=== PATIENT | female | born 1950 | race Caucasian/White ===

== ENCOUNTER 2017-07-30 08:06 | Day surgery (SDC) ==
[2016-04-12 14:26] VITALS: BMI 29.2
[2017-07-30] MEDS ORDERED: ALBUTEROL 0.083% NEB NEB STA (08:28)
[2017-07-30] MEDS ORDERED: LIDOCAINE 1% 20 ML MDV ID ONE (08:55)
[2017-07-30] MEDS ORDERED: VERSED ONE (10:00)
[2017-07-30] MEDS ORDERED: DIPRIVAN 20 ML VIAL IVP ONE (10:00)
[2017-07-30 11:22] VITALS: BP 119/67
[2017-07-30 15:19] VITALS: TEMP 97
--- NOTE | 2017-07-31 09:47 | OP ---
INDICATIONS FOR PROCEDURE: 66-year-old female presents for colonoscopy exam. 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 She was treated with surgery. She presents for followup colonoscopy examination. MEDICATIONS: SEE ANESTHESIA NOTES. PROCEDURE: COLONOSCOPY. REPORT: The risks, benefits, alternatives and limitations were discussed in detail with the patient. Informed consent was obtained. After adequate sedation was achieved, a digital rectal exam revealed good tone, no masses. The colonoscope was introduced into the rectum and advanced under direct visual guidance to the ileocolonic anastomosis. This appeared unremarkable. I then slowly withdrew the scope in a circumferential manner examining the mucosa quite carefully. I looked on the proximal and distal side of folds and flexures as best as possible. I was able to retroflex the scope in the right colon and left colon to increase visualization. There was moderate amount of diverticulosis scattered throughout the sigmoid area. No other abnormalities were noted including on retroflex view of the anal canal. The prep was good. The withdrawal time was 7 minutes and 37 seconds. The patient tolerated the procedure well with stable vital signs and pulse oximetry throughout. IMPRESSION: 1. DIVERTICULOSIS RECOMMENDATIONS: 1. High fiber diet 2. Office visit as needed 3. Consider colonoscopy examination again in 2 years, sooner if there are signs and symptoms to indicate otherwise CC: DR. LYDIA PERALTA
== END 2017-07-30 11:37 | disposition home or self-care (01) ==
LOC: SURG 08:06
PROVIDERS: ATTEND Internal Medicine Gastroenterology
DX: Z08 Encounter for follow-up examination after completed treatment for malignant neoplasm (principal); Z85.038 Personal history of other malignant neoplasm of large intestine; K57.30 Diverticulosis of large intestine without perforation or abscess without bleeding; E11.9 Type 2 diabetes mellitus without complications
CPT/HCPCS: 82962; 94640

== ENCOUNTER 2018-12-30 06:53 | Outpatient (CLI) ==
[2016-04-12 14:26] VITALS: BMI 29.2
--- NOTE | 2018-12-31 10:51 | ECHO2D ---
Date of Exam: 12/30/18 Ordering Physician: DR. MOR FREEMAN Room #: OP Reason for Echo: SOB, CHEST PAIN M-Mode Normal Adult Results LV Dimensions Normal Adult Results AoV Opening excursions >1.6 >1.6 LVEDD-base- 3.5-5.8 4.4 Ao root dimensions 2.0-3.7 3.3 LVESD-base- 3.1-4.6 L. Atrium dimensions 1.9-3.8 3.7 Post. Wall thickness 0.8-1.1 1.1 IV septum (thickness) 0.7-1.2 1.2 Post. Wall excursion 0.72-1.3 NORMAL Septal motion NORMAL Systolic motion R. Ventricular cavity 1.5-2.0 NORMAL LVEF 60% 62% Paradoxical septal wall motion NORMAL 2-D : 2-D M Mode Echocardiogram was performed using apical four chamber and left parasternal long and short axis views. Mitral, tricuspid and aortic valves appear to be normal. Contractility of the left ventricle seems to be normal, so is the cavity size. Left atrial cavity size and aortic root appear to be normal. There is no pericardial effusion. There is no thrombus noted in the left ventricular or left aortic cavity. No mitral valve prolapse noted. M-MODE: MV: NORMAL AV: NORMAL TV: NORMAL PV: CHAMBER SIZE: NORMAL WALL MOTION: NORMAL PERICARDIUM: NORMAL INTERPRETATION: 1. BORDERLINE LEFT VENTRICULAR HYPERTROPHY 2. NORMAL LEFT VENTRICLE CONTRACTILITY 3. NORMAL VALVES MTDD
== END 2018-12-30 06:54 | disposition home or self-care (01) ==
LOC: CAR 06:53
PROVIDERS: ATTEND Internal Medicine
DX: R06.02 Shortness of breath (principal); R07.9 Chest pain, unspecified

== ENCOUNTER 2019-01-01 06:38 | Outpatient (CLI) ==
[2016-04-12 14:26] VITALS: BMI 29.2
[2019-01-01] MEDS ORDERED: DOBUTAMINE 500 MG-D5W 250 ML 250 ML IV ONE (07:13)
[2019-01-01] MEDS ORDERED: ATROPINE SULFATE PFS ONE (07:14)
[2019-01-01] MEDS ORDERED: SODIUM CHLORIDE 1,000 ML IV SCH (08:30)
--- NOTE | 2019-01-01 09:37 | DOBSTECHO ---
Date of Test: 01/01/19 Ordering Physician: DR. MOR FREEMAN SMOKING HISTORY: QUIT 5 YRS AGO Current Medications: ALPRAZOLAM, PANTOPRAZOLE, FLUOXETINE, LISINOPRIL, LOVASTATIN, BENTYL, ASA, SYMBICORT, VENTOLIN Height: 61" Weight: 177 LBS Target Heart Rate: 128/151 S-T Segment Stage Time HR BPM BP MMHG Rhythm +/- Elevation Depression Symptoms Control Sitting 68 BPM 118/62 SR X NONE Dobutamine 250mg/D5W 5cmg/KG/mn 10cmg/KG/mn 3:00 74 BPM 130/86 SR X NONE 15cmg/KG/mn 2:00 107 BPM SR X NONE 20cmg/KG/mn 1:46 137 BPM 158/80 SR X NONE 25cmg/KG/mn 30cmg/KG/mn 35cmg/KG/mn 40cmg/KG/mn 4 MIN POST INFUSION z 114 BPM 148/70 SR X NONE 10 MIN POST INFUSION z 78 BPM 132/70 SR X NONE DURATION OF INFUSION 6:46 MAXIMUM HEART RATE REACHED 137 Interpretation: 1. NO EVIDENCE OF ISCHEMIA BY ST-T WAVE 2. NO CHEST PAIN OR DISCOMFORT 3. NORMAL LEFT VENTRICULAR CONTRACTILITY--RESTING AND WITH DOBUTAMINE INFUSION MTDD
--- NOTE | 2019-01-01 09:39 | ECHOSTRESS ---
Date of Exam: 01/01/19 Ordering Physician: DR. MOR FREEMAN Reason for Echo: SOB, CHEST PAIN, DOBUTAMINE STRESS TEST--NO ISCHEMIA M-Mode Normal Adult Results LV Dimensions Normal Adult Results AoV Opening excursions >1.6 LVEDD-base- 3.5-5.8 Ao root dimensions 2.0-3.7 LVESD-base- 3.1-4.6 L. Atrium dimensions 1.9-3.8 Post. Wall thickness 0.8-1.1 IV septum (thickness) 0.7-1.2 Post. Wall excursion 0.72-1.3 Septal motion Systolic motion R. Ventricular cavity 1.5-2.0 LVEF 60% Paradoxical septal wall motion 2-D: NORMAL LEFT VENTRICULAR CONTRACTILITY--RESTING AND WITH DOBUTAMINE INFUSION M-MODE: MV: AV: TV: PV: CHAMBER SIZE: WALL MOTION: NORMAL LEFT VENTRICULAR CONTRACTILITY--RESTING AND WITH DOBUTAMINE INFUSION PERICARDIUM: INTERPRETATION: 1. NORMAL LEFT VENTRICULAR CONTRACTILITY--RESTING AND WITH DOBUTAMINE INFUSION MTDD
== END 2019-01-01 06:39 | disposition home or self-care (01) ==
LOC: CAR 06:38
PROVIDERS: ATTEND Internal Medicine
DX: R06.02 Shortness of breath (principal); R07.9 Chest pain, unspecified

== ENCOUNTER 2022-05-23 07:13 | Inpatient (IN) ==
--- NOTE | 2022-05-23 07:26 | ED.PDOC ---
General ED Provider: Dr. ZOYA CUTLER Chief Complaint: Nausea/Vomiting Stated Complaint: Abdominal pain with nausea and vomiting for several days. Seen in ER here recently, CT showed diverticulitis, Rx augmentin, then had F/U with [facility] with Dr. Freeman, abx changed to cipro and flagyl, patient having ongoing N and V. Here Time Seen by Provider: 05/23/22 07:25 Mode of Arrival: Walk-In Information Source: Patient and Family Exam Limitations: No limitations Primary Care Provider: MOR FREEMAN Referred to ED by: PCP Nursing and Triage Documentation Reviewed and Agree: Yes Does patient meet sepsis criteria?: No System Inflammatory Response Syndrome: Not Applicable Sepsis Protocol: For patient's 13 years and over: Temp is 96.8 and below OR 101 and greater Pulse >90 BPM Resp >20/minute Acutely Altered Mental Status Are patient's symptoms suggestive of a new infection, such as: -Pneumonia -Skin, Soft Tissue -Endocarditis -UTI -Bone, Joint Infection -Implantable Device -Acute Abdominal Infection -Wound Infection -Meningitis -Blood Stream Catheter Infection -Unknown GI Complaint Exam Abdominal Pain Complaint/Exam Onset: Gradual Duration: several d Symptoms Are: Still present Timing: Constant Initial Severity: Mild Current Severity: Moderate Location of Pain: LLQ Character: Reports Aching and Cramping Aggravating: Reports Food Alleviating: Reports None Associated Signs and Symptoms: Denies Diaphoresis, Fever, Cough, Chest pain, Dizziness, Back pain, Constipation, Blood in stool, Dysuria, Urinary frequency, Decreased urine output, Decreased appetite, Vaginal bleeding, Vaginal discharge, Nausea, Vomiting, Diarrhea, Sore throat or Decreased activity Related History: Reports Similar episode AAA Risk Factors: Reports None Cardiac Risk Factors: Reports None Ectopic Risk Factors: Reports None Ovarian Torsion Risk Factors: Reports None Surgical Obstruction Risk Factors: Reports None Related Surgical History: Reports None Abdominal Findings: Present Other (TTP LLQ) Review of Systems Review Of Systems Constitutional: Reports Malaise and Weakness Eyes: Reports No symptoms Ears, Nose, Mouth, Throat: Reports No symptoms Respiratory: Reports No symptoms Cardiac: Reports No symptoms GI: Reports Abdominal pain, Nausea, Poor appetite, Poor fluid intake and Vomiting : Reports No symptoms Musculoskeletal: Reports No symptoms Skin: Reports No symptoms Neurological: Reports No symptoms Endocrine: Reports No symptoms Hematologic/Lymphatic: Reports No symptoms All Other Systems: Reviewed and Negative PFSH Social History History of recent travel: No Female Reproductive History Menstrual Hx Hysterectomy: Yes Hx Tubal Ligation: No Physical Exam Physical Exam Appearance: Reports Ill-appearing Ill-appearing: Moderate Pain Distress: Moderate Eyes: Reports CHANELL ENT: Reports Oropharynx normal Neck: Nonsupple Respiratory: Reports Airway patent and Breath sounds clear Cardiovascular: Reports RRR and Pulses normal GI/: Reports Bowel sounds normal and Tender (LLQ) Musculoskeletal: Reports Normal strength and ROM intact Skin: Reports Warm and Dry Neurological: Reports Sensation intact, Motor intact and Alert Psychiatric: Reports Affect appropriate and Mood appropriate Interpretation Radiology Interpretation Radiology Interpretation By: Radiologist Radiology Results: Positive Exam Interpreted: CT Scan Xray Comments: abd/pel with IV contrast per Dr. Freeman - diverticulitis, no abscess Physician Notification Case Discussed Physician Notified: Dr. Freeman Time of Notification: 11:00 Comments: Admit Critical Care Note Critical Care Note Total Critical Care Time (mins): 0 Course Course Hematology/Chemistry: 05/23/22 07:40 05/23/22 07:40 Orders, Labs, Meds: Lab Review 05/23/22 05/23/22 05/23/22 07:40 07:40 09:05 WBC 7.45 RBC 4.30 Hgb 12.7 Hct 38.9 MCV 90.5 MCH 29.5 MCHC 32.6 RDW Coeff of Michelle 13.6 Plt Count 236 Immature Gran % (Auto) 0.4 Neut % (Auto) 67.4 Lymph % (Auto) 23.2 [place] % (Auto) 6.8 Eos % (Auto) 1.9 Baso % (Auto) 0.3 Neut # (Auto) 5.0 Lymph # (Auto) 1.7 [place] # (Auto) 0.5 Eos # (Auto) 0.1 Baso # (Auto) 0.0 Immature Gran # (Auto) 0.0 Sodium 138.3 Potassium 3.58 Chloride 96.4 L Carbon Dioxide 30.8 H Anion Gap 14.68 BUN 15.7 Creatinine 0.90 Estimated GFR (MDRD) 62.00 BUN/Creatinine Ratio 17.44 Glucose 122.5 H Calcium 9.78 Total Bilirubin 0.42 AST 33.3 ALT 25.6 Alkaline Phosphatase 81.5 Total Protein 7.96 Albumin 4.34 Globulin 3.62 Albumin/Globulin Ratio 1.19 SARS CoV-2 RNA Rapid BRIAN Negative Orders Category Date Time Status ADMIT PATIENT INPATIENT .TO [facility] [place] (NON-MONITORED ADMISSION 05/23/22 09:07 Active BED) ACTIVITY .Up With Assistance CARE 05/23/22 09:07 Active INTAKE & OUTPUT Q8HR CARE 05/23/22 09:08 Active NPO REMINDER: IMAGING ONCE CARE 05/23/22 09:17 Active VITAL SIGNS Q8HR CARE 05/23/22 09:08 Active CBC W/ AUTO DIFF DAILY@0600 LAB 05/24/22 06:00 Ordered CBC W/ AUTO DIFF DAILY@0600 LAB 05/25/22 06:00 Ordered CBC W/ AUTO DIFF Stat LAB 05/23/22 07:40 Completed CMP [COMPREHENSIVE METABOLIC PANEL] Stat LAB 05/23/22 07:40 Completed COMPREHENSIVE METABOLIC PANEL DAILY@0600 LAB 05/24/22 06:00 Ordered COMPREHENSIVE METABOLIC PANEL DAILY@0600 LAB 05/25/22 06:00 Ordered COVID [SARS COV-2 RNA RAPID BRIAN] Stat LAB 05/23/22 09:05 Completed Ciprofloxacin/D5w [Cipro 400 mg/200 ml D5w] MEDS 05/23/22 09:30 Active 400 mg in 200 ml IV BID Metronidazole/Sodium Chloride [Flagyl 500 mg/100 ml] MEDS 05/23/22 09:30 Active 500 mg in 100 ml IV Q6HR Ondansetron HCl/Pf [Zofran 4 mg/2 ml] MEDS 05/23/22 07:31 Discontinued 4 mg IVP ONCE ONE Ondansetron HCl/Pf [Zofran 4 mg/2 ml] MEDS 05/23/22 09:07 Active 4 mg IVP Q4H PRN Promethazine HCl [Phenergan 25 mg/ml Vial] MEDS 05/23/22 08:14 Discontinued 25 mg .ROUTE .STK-MED ONE Promethazine HCl [Phenergan 25 mg/ml Vial] 25 mg MEDS 05/23/22 08:08 Discontinued 0.9 % Sodium Chloride [Sodium Chloride] 50 ml IV ONCE Sodium Chloride 0.9% [Sodium Chloride] 1,000 ml MEDS 05/23/22 07:31 Active IV 125 mls/hr Sodium Chloride 0.9% [Sodium Chloride] 500 ml MEDS 05/23/22 09:07 Active IV 100 mls/hr RESUSCITATION STATUS Routine OTHERS 05/23/22 09:[address] ABDOMEN/PELVIS W CONTRAST Stat RADS 05/23/22 09:17 Completed Medications Generic Name Dose Route Start Last Admin Trade Name Freq PRN Reason Stop Dose Admin Sodium Chloride 1,000 mls @ 125 mls/hr 05/23/22 07:31 05/23/22 08:08 Sodium Chloride IV 05/23/22 15:30 125 mls/hr .Q8H STA Administration Ciprofloxacin/Dextrose 400 mg in 200 mls @ 200 mls/hr 05/23/22 09:30 05/23/22 10:18 Cipro 400 Mg/200 Ml D5w IV 05/26/22 09:29 200 mls/hr BID THIEN Administration Metronidazole 500 mg in 100 mls @ 100 mls/hr 05/23/22 09:30 Flagyl 500 Mg/100 Ml IV 05/26/22 09:29 Q6HR THIEN Sodium Chloride 500 mls @ 100 mls/hr 05/23/22 09:07 Sodium Chloride IV 05/23/22 14:06 .Q5H STA Ondansetron HCl 4 mg 05/23/22 09:07 Ondansetron Hcl/Pf 4 Mg/2 Ml Sdv IVP Q4H PRN Nausea / Vomiting Discontinued Medications Generic Name Dose Route Start Last Admin Trade Name Freq PRN Reason Stop Dose Admin Promethazine HCl 25 mg/ Sodium 51 mls @ 75 mls/hr 05/23/22 08:08 05/23/22 08:16 Chloride IV 05/23/22 08:48 75 mls/hr ONCE ONE Administration Ondansetron HCl 4 mg 05/23/22 07:31 05/23/22 10:57 Ondansetron Hcl/Pf 4 Mg/2 Ml Sdv IVP 05/23/22 07:32 Not Given ONCE ONE Vital Signs: Temp Pulse Resp BP Pulse Ox 05/23/22 07:14 97.9 F 84 18 146/80 H 90 L Discharge Plan Discharge Patient Disposition: ADMITTED INPATIENT Prescriptions: No Action alprazolam 0.25 MG tablet 0.25 mg PO 1-2XD fluoxetine [Prozac] 20 MG capsule 20 mg PO DAILY lovastatin 40 MG tablet 1 tab PO DAILY aspirin 81 MG tablet,delayed release (DR/EC) 1 tab PO DAILY Calcium 600 + D(3) 1 EACH tablet 1 tab PO DAILY dicyclomine 10 mg capsule 10 mg PO PRN PRN (Reason: ibs) Label Comments: TAKE 1 CAPSULE BY MOUTH EVERY 6 HOURS NEEDED lisinopril-hydrochlorothiazide 20-12.5 mg tablet 1 tab PO DAILY metronidazole 500 mg tablet 500 mg PO TID Label Comments: TAKE 1 TABLET BY MOUTH THREE TIMES DAILY FOR 7 DAYS Rx Instructions: take for 7 days. Started 05/21/22 ciprofloxacin HCl 500 mg tablet 500 mg PO BID Label Comments: TAKE 1 TABLET BY MOUTH TWICE DAILY FOR 7 DAYS Rx Instructions: Take for 7 days. Started 05/21/22 tramadol 50 mg tablet 50 mg PO TID PRN (Reason: Pain) Label Comments: TAKE 1 TABLET BY MOUTH THREE TIMES DAILY NEEDED montelukast 10 mg tablet 10 mg PO DAILY Label Comments: TAKE 1 TABLET BY MOUTH EVERY DAY pantoprazole [Protonix] 40 MG tablet,delayed release (DR/EC) 40 mg PO DAILY Did you review [place] PERSONAL CONSULTANT?: Not Applicable ED Provider: ZOYA CUTLER Condition: Stable Physician Progress Note: [Admit for IV abx and IVF.]
[2022-05-23] MEDS ORDERED: SODIUM CHLORIDE 1,000 ML IV STA (07:31)
[2022-05-23] MEDS ORDERED: ZOFRAN 4 MG/2 ML IVP ONE (07:31)
[2022-05-23 07:50] LABS: BASOPHILS % (AUTO) 0.3 % (0.0-3.0); EOSINOPHILS # (AUTO) 0.1 K/ul (0.0-0.7); EOSINOPHILS % (AUTO) 1.9 % (0.0-7.0); HEMATOCRIT 38.9 % (37.0-47.0); HEMOGLOBIN 12.7 g/dl (12.0-16.0); IMMATURE GRANULOCYTE % (AUTO) 0.4 % (0.0-5.0); LYMPHOCYTES # (AUTO) 1.7 K/uL (0.60-3.4); LYMPHOCYTES % (AUTO) 23.2 (10.0-50.0); MEAN CORPUSCULAR HEMOGLOBIN 29.5 pg (27.0-31.0); MEAN CORPUSCULAR HGB CONC 32.6 (31.8-35.4); MEAN CORPUSCULAR VOLUME 90.5 fl (81.0-99.0); MONOCYTES # (AUTO) 0.5 K/uL (0.4-2.0); MONOCYTES % (AUTO) 6.8 (0-10); NEUTROPHILS % (AUTO) 67.4 % (42.2-75.2); PLATELET COUNT 236 10^3/uL (140-440); RDW COEFFICIENT OF VARIATION 13.6 % (11.6-14.8); WHITE BLOOD COUNT 7.45 K/ul (4.6-10.2)
[2022-05-23 08:01] LABS: ALANINE AMINOTRANSFERASE 25.6 U/L (0-35); ALBUMIN 4.34 g/dL (3.5-5.0); ALKALINE PHOSPHATASE 81.5 U/L (53-141); ASPARTATE AMINO TRANSFERASE 33.3 U/L (14-36); BILIRUBIN,TOTAL 0.42 mg/dL (0.2-1.3); BLOOD UREA NITROGEN 15.7 mg/dL (7-17); CALCIUM 9.78 mg/dL (8.4-10.2); CARBON DIOXIDE 30.8 mmol/L (22-30.0); CHLORIDE 96.4 mmol/L (98-107); CREATININE 0.9 mg/dL (0.60-1.30); GLUCOSE 122.5 mg/dL (74-106); POTASSIUM 3.58 mmol/L (3.5-5.1); SODIUM 138.3 mmol/L (134.5-145); TOTAL PROTEIN 7.96 g/dL (6.3-8.2)
[2022-05-23] MEDS ORDERED: PHENERGAN 25 MG/ML VIAL 25 MG in SODIUM CHLORIDE 50 ML IV ONE (08:08)
[2022-05-23] MEDS ORDERED: PHENERGAN 25 MG/ML VIAL ONE ×2 (08:14→21:23)
[2022-05-23] MEDS ORDERED: ZOFRAN 4 MG/2 ML IVP PRN (09:07)
[2022-05-23] MEDS ORDERED: SODIUM CHLORIDE 500 ML IV STA (09:07)
[2022-05-23] MEDS: CIPRO 400 MG/200 ML D5W 400 MG/200 ML BAG IV SCH ×2 (10:18→20:11)
--- NOTE | 2022-05-23 10:48 | CT ---
EXAM: CT Abdomen with contrast. CT Pelvis with contrast. HISTORY: Diverticulitis. COMPARISON: 05/18/2022, 04/12/2016. TECHNIQUE: Multiple axial images of the abdomen and pelvis were obtained following intravenous admin istration of 100 mL Omnipaque 350, low osmolar. Images were reformatted in the sagittal and coronal plane. FINDINGS: A 0.8 cm left lower lobe nodule on axial image 4 which may contain internal fat although t his is uncertain. Degenerative changes present in the spine, greatest at L5-S1. Gallbladder absent. There may be mild fatty infiltration of the liver. Pancreas, spleen, adrenal gl ands, and kidneys demonstrate no acute abnormality. Fatty ventral hernia on axial image 41 without edema. Staple line along the right colon. Wall thick ening of the sigmoid colon centered around diverticulum with adjacent inflammation, axial image 56. No bowel obstruction, perforation or abscess. Uterus absent. Bladder normal. No free fluid, free air or lymphadenopathy. Atherosclerotic calcifi cations present without aneurysm. IMPRESSION: 1. Stable sigmoid diverticulitis. No perforation, abscess or bowel obstruction. 2. Left lower lobe 0.8 cm nodule which may contain internal fat, possibly representing a hamartoma. Recommend non-emergent chest CT with thin sections for further evaluation. All CT scans are performed using dose optimization techniques as appropriate to the performed exam an d include at least one of the following: Automated exposure control, adjustment of the mA and/or kV according t o size, and the use of iterative reconstruction technique.
[2022-05-23 12:31] VITALS: BMI 35.4
[2022-05-23] MEDS: FLAGYL 500 MG/100 ML 500 MG/100 ML BAG IV SCH ×4 (12:43→23:27)
[2022-05-23] MEDS ORDERED: XANAX PO PRN (13:04)
[2022-05-23] MEDS ORDERED: BENTYL PO PRN (13:04)
[2022-05-23] MEDS ORDERED: ULTRAM PO PRN (13:04)
[2022-05-23] MEDS: DEXTROSE 5%-1/2NS IV SOLUTION 1,000 ML IV SCH (13:53)
[2022-05-23 15:50] LABS: BILIRUBIN,URINE Negative (NEGATIVE); CLARITY,URINE Clear (CLEAR); COLOR,URINE Yellow (YELLOW); GLUCOSE, URINE (UA) Negative (NEGATIVE); KETONES,URINE Negative (NEGATIVE); LEUKOCYTE ESTERASE ,URINE Negative (NEGATIVE); NITRITE,URINE Negative (NEGATIVE); PROTEIN,URINE Negative (NEGATIVE); URINE, BLOOD Negative (NEGATIVE); UROBILINOGEN,URINE 0.2 (0.2)
[2022-05-23] MEDS: MEVACOR PO SCH (17:31)
[2022-05-23] MEDS ORDERED: PHENERGAN 25 MG/ML VIAL 25 MG in SODIUM CHLORIDE 50 ML IV STA (21:09)
[2022-05-24 05:05] LABS: HEMATOCRIT 33.3 % (37.0-47.0); MEAN CORPUSCULAR VOLUME 90.7 fl (81.0-99.0); PLATELET COUNT 204 10^3/uL (140-440); RDW COEFFICIENT OF VARIATION 13.5 % (11.6-14.8); RED BLOOD COUNT 3.67 10^6/ul (4.20-5.40); WHITE BLOOD COUNT 6.41 K/ul (4.6-10.2)
[2022-05-24] MEDS: FLAGYL 500 MG/100 ML 500 MG/100 ML BAG IV SCH ×3 (05:14→22:24)
[2022-05-24] MEDS: DEXTROSE 5%-1/2NS IV SOLUTION 1,000 ML IV SCH ×2 (05:18→09:13)
[2022-05-24 05:20] LABS: ALANINE AMINOTRANSFERASE 25.4 U/L (0-35); ALBUMIN 3.63 g/dL (3.5-5.0); ALKALINE PHOSPHATASE 60.2 U/L (53-141); ASPARTATE AMINO TRANSFERASE 37.4 U/L (14-36); BILIRUBIN,TOTAL 0.39 mg/dL (0.2-1.3); BLOOD UREA NITROGEN 9.4 mg/dL (7-17); CALCIUM 8.86 mg/dL (8.4-10.2); CARBON DIOXIDE 33.1 mmol/L (22-30.0); CHLORIDE 98.1 mmol/L (98-107); CREATININE 0.85 mg/dL (0.60-1.30); GLUCOSE 120.9 mg/dL (74-106); POTASSIUM 3.54 mmol/L (3.5-5.1); SODIUM 135.5 mmol/L (134.5-145); TOTAL PROTEIN 6.68 g/dL (6.3-8.2)
[2022-05-24 05:34] LABS: ANISOCYTOSIS NOT PRESENT (NOT PRESENT)
[2022-05-24] MEDS: PROTONIX PO SCH (05:40)
[2022-05-24] MEDS ORDERED: PHENERGAN 25 MG/ML VIAL 12.5 MG in SODIUM CHLORIDE 50 ML IV PRN (08:37)
[2022-05-24] MEDS ORDERED: NON-FORMULARY MEDICATION (Calcium Carbonate-Vitamin D3 [Calcium 600 + D(3)] 1 EACH tablet) PO SCH (09:00)
[2022-05-24] MEDS: ZOFRAN 4 MG/2 ML IVP PRN ×3 (09:11→22:31)
--- NOTE | 2022-05-24 09:34 | PCM.PROG ---
Attending Provider: ATTENDING PROVIDER: Dr. MOR QUARLES This patient is seen with Lilliana Penaloza, Nurse Practitioner. DATE OF SERVICE: 05/24/22 SUBJECTIVE: This 71 year old /WHITE F was hospitalized 05/23/22. Still left lower abdominal pain. No diarrhea. No fever. Nausea off and on. CT of abdomen noted lower lobe nodule, does see Dr. Yin in [place]. Will order CT of the chest. REVIEW OF SYSTEMS: CONSTITUTIONAL: No night sweats. No fatigue, malaise, lethargy. No fever or chills. Weakness. HEENT: Eyes: No visual changes. No eye pain. No eye discharge. ENT: No runny nose. No epistaxis. No sinus pain. No odynophagia. No congestion. RESPIRATORY: No cough, no congestion. No hemoptysis. No shortness of breath. CARDIOVASCULAR: No angina symptoms. No CHF symptoms. No atypical chest pain for CAD. No palpitations. No orthopnea.. GASTROINTESTINAL: Abdominal pain. Nausea. No diarrhea or constipation. No hematemesis. No hematochezia. GENITOURINARY: No urgency. No frequency. No dysuria. No hematuria. No obstructive symptoms. No discharge. No pain. No significant abnormal bleeding. MUSCULOSKELETAL: No musculoskeletal pain; no joint swelling. NEUROLOGICAL: Awake, alert, oriented to time, place and person. No headache. No neck pain. No syncope. No seizures. No dizziness. PSYCHIATRIC: Not anxious. No depression. No suicidal thoughts. No homicidal thoughts. SKIN: No rash. No lesions. No wounds. ENDOCRINE: No unexplained weight loss. No weight gain. HEMATOLOGIC/LYMPHATIC: No anemia. No purpura. No petechiae. No prolonged or excessive bleeding. No palpable lymph nodes. PHYSICAL EXAMINATION: GENERAL: The patient is awake, alert and oriented, lying in bed in no distress. VITAL SIGNS: Temperature 97.2 F, Pulse 63, Respiratory Rate 16, BP 135/79, Pulse Ox 95% HEENT: Head normocephalic, atraumatic. Eyes: Extraocular muscles are intact. Pupils are equal, round and reactive to light and accommodation. Ears: No lesions. Nose appeared normal. Throat: No exudate or erythema. NECK: Supple. No JVD, no carotid bruit. No lymphadenopathy or thyromegaly. LUNGS: Diminished breath sounds. Clear to auscultation. Percussion note normal. Chest symmetrical. HEART: S1, S2, no S3. No murmurs. No cyanosis or clubbing. No ascites. Pulses: Dorsalis pedis and posterior tibial pulses +1 to +2 both sides. ABDOMEN: Soft. Left upper and lower quadrant tenderness. Bowel sounds active. No CVA tenderness. No mass felt. EXTREMITIES: No edema. Full range of motion of all extremities, equal. NEUROLOGIC: No focal deficit. Cranial nerves II through XII are grossly intact. No headache. No double vision. SKIN: Not dry. Intact. Turgor-normal. LYMPHATIC: No palpable lymph nodes/no lymphedema. MUSCULOSKELETAL: Normal joints with no swelling. Muscle tone is normal. LAB REVIEW: 05/24/22 04:59 05/24/22 04:59 05/24/22 04:59: Sodium 135.5, Potassium 3.54, Chloride 98.1, Carbon Dioxide 33.1 H, Anion Gap 7.84, BUN 9.4, Creatinine 0.85, Estimated GFR (MDRD) 66.00, BUN/Creatinine Ratio 11.05, Glucose 120.9 H, Calcium 8.86, Total Bilirubin 0.39, AST 37.4 H, ALT 25.4, Alkaline Phosphatase 60.2, Total Protein 6.68, Albumin 3.63, Globulin 3.05, Albumin/Globulin Ratio 1.19 05/24/22 04:59: WBC 6.41, RBC 3.67 L, Hgb 11.0 L, Hct 33.3 L, MCV 90.7, MCH 30.0, MCHC 33.0, RDW Coeff of Michelle 13.5, Plt Count 204, Neutrophils % (Manual) 50.0, Lymphocytes % (Manual) 40.0, Monocytes % (Manual) 6.0, Eosinophils % (Manual) 2.0, Reactive Lymphocytes 2.0, Anisocytosis Not present 05/23/22 15:30: Urine Color Yellow, Urine Clarity Clear, Urine pH 7.0, Ur Specific Blanchard 1.020, Urine Protein Negative, Urine Glucose (UA) Negative, Urine Ketones Negative, Urine Blood Negative, Urine Nitrite Negative, Urine Bilirubin Negative, Urine Urobilinogen 0.2, Ur Leukocyte Esterase Negative 05/23/22 09:05: SARS CoV-2 RNA Rapid BRIAN Negative 05/23/22 07:40: Sodium 138.3, Potassium 3.58, Chloride 96.4 L, Carbon Dioxide 30.8 H, Anion Gap 14.68, BUN 15.7, Creatinine 0.90, Estimated GFR (MDRD) 62.00, BUN/Creatinine Ratio 17.44, Glucose 122.5 H, Calcium 9.78, Total Bilirubin 0.42, AST 33.3, ALT 25.6, Alkaline Phosphatase 81.5, Total Protein 7.96, Albumin 4.34, Globulin 3.62, Albumin/Globulin Ratio 1.19 ASSESSMENT: Please see below. 1. Acute diverticulitis 2. COPD 3. Dehydration PLAN: 1. CT chest with and without 3. Stop IV fluids in AM 3. Decreased fluids to 50cc 4. Zofran 8mg IV Q 6 hours 5. Decrease Flagyl 500mg Q 8 hours 6. Phenergan 12.5mg IV PRN Plan and coordination of the patient's care discussed in the presence of Manager [employer] and nurse. SCRIBED BY: Misha STACK scribed while in presence of service performed by Dr. Quarles/Lilliana Penaloza APRN on 05/24/22 ([id number])
--- NOTE | 2022-05-24 10:54 | PN ---
DATE OF SERVICE: 05/23/22 SUBJECTIVE: The patient was seen and examined in the emergency room. The patient came in because of having nausea very likely from Flagyl which was started in the office. She was seen in the emergency room two days ago where she had acute diverticulitis with possibility of neoplasm underlying. This patient was given Augmentin and was sent home. The patient's overall says that she has much less pain than what she had on the left upper quadrant. She is feeling some better but nausea has continued likely from Flagyl. The patient hasn't eaten anything, almost vomited twice in the emergency room. Daughter is present in the room. REVIEW OF SYSTEMS: CONSTITUTIONAL: No night sweats. No fatigue, malaise, lethargy. No fever or chills. HEENT: Eyes: No visual changes. No eye pain. No eye discharge. ENT: No runny nose. No epistaxis. No sinus pain. No sore throat. No odynophagia. No congestion. RESPIRATORY: No cough, no congestion. No hemoptysis. No shortness of breath. CARDIOVASCULAR: No angina symptoms. No CHF symptoms. No atypical chest pain for CAD. No palpitations. No PND. No orthopnea. GASTROINTESTINAL: Practically not much abdominal pain. Nausea with vomiting. No diarrhea or constipation. No hematemesis. No hematochezia. GENITOURINARY: No urgency. No frequency. No dysuria. No hematuria. No obstructive symptoms. No discharge. No pain. No significant abnormal bleeding. MUSCULOSKELETAL: No musculoskeletal pain; no joint swelling. NEUROLOGICAL: No headache. No neck pain. No syncope. No seizures. No dizziness. PSYCHIATRIC: Not anxious. No depression. No suicidal thoughts. No homicidal thoughts. SKIN: No rash. No lesions. No wounds. ENDOCRINE: No unexplained weight loss. No weight gain. HEMATOLOGIC/LYMPHATIC: No anemia. No purpura. No petechiae. No prolonged or excessive bleeding. No palpable lymph nodes. PHYSICAL EXAMINATION: HEENT: Head normocephalic, atraumatic. Eyes: Extraocular muscles are intact. Pupils are equal, round and reactive to light and accommodation. Ears: No lesions. Nose appeared normal. Throat: No exudate or erythema. NECK: Supple. No JVD, no carotid bruit. No lymphadenopathy or thyromegaly. LUNGS: Clear to auscultation. Percussion note normal. Chest symmetrical. HEART: S1, S2, no S3. No murmurs. No cyanosis or clubbing. No ascites. Pulses: Dorsalis pedis and posterior tibial pulses +1 to +2 bilaterally. ABDOMEN: Soft. Mild tenderness in the left upper quadrant, no rebound tenderness. Bowel sounds active. No CVA tenderness. No mass felt. EXTREMITIES: No edema. Full range of motion of all extremities, equal. NEUROLOGIC: No focal deficit. Cranial nerves II through XII are grossly intact. No headache. No double vision. SKIN: Not dry. Intact. Turgor - normal. LYMPHATIC: No palpable lymph nodes/no lymphedema. MUSCULOSKELETAL: Normal joints with no swelling. Muscle tone is normal. LABS: CT scan of the abdomen showed diverticulitis, stable. No perforation. Case discussed with ER attending. PLAN: 1. Hospitalize the patient with acute diverticulitis 2. Give IV Flagyl and Cipro 3. IV fluids TIME SPENT: More than 30 minutes. Plan and coordination of the patient's care discussed in the presence of nurse. FABIAN
--- NOTE | 2022-05-24 12:09 | CT ---
EXAM: CT Chest with and without contrast. HISTORY: Pulmonary nodule follow-up. COMPARISON: Abdominal CT 05/23/2022, 05/18/2022. TECHNIQUE: Multiple axial images of the chest were obtained prior to and following intravenous admin istration of 100 mL Omnipaque 350, low osmolar. Images were reformatted in the sagittal and coronal planes. FINDINGS: Stable nonenlarged mediastinal and hilar lymph nodes. Heart size normal. Coronary artery aortic calcifications present. There is no pericardial effusion. Calcified granulomatous changes. Moderate emphysema. There is a 0.5 cm left upper lobe nodule on ax ial image 16 and. Tiny perifissural right lung nodule axial image 26 measuring 0.3 cm. A 0.3 cm veronica und-glass nodule right lower lobe on axial image 32. The recently described 0.9 cm left lower lobe n odule again noted on axial image 40. On thin section images this contains the visible macroscopic fa t with internal density measuring -90 Hounsfield units. Band-like areas of consolidation in the righ t middle lobe and lingula. No pleural effusion or pneumothorax. No acute abnormality in the upper abdomen. Degenerative changes present in the spine. IMPRESSION: 1. Left lower lobe nodule is consistent with a hamartoma. 2. Additional micronodules measuring up to 0.5 cm in the left upper lobe. 3. Moderate emphysema. 4. Calcified granulomatous changes. 5. Atherosclerosis. 6. Follow-up chest CT in 12 months recommended for reassessment. All CT scans are performed using dose optimization techniques as appropriate to the performed exam an d include at least one of the following: Automated exposure control, adjustment of the mA and/or kV according t o size, and the use of iterative reconstruction technique.
[2022-05-24] MEDS: CIPRO 400 MG/200 ML D5W 400 MG/200 ML BAG IV SCH ×3 (12:10→20:29)
[2022-05-24] MEDS: SINGULAIR PO SCH (12:11)
[2022-05-24] MEDS: CALCIUM 500 + VIT D 5 MCG (200 IU) TABLET PO SCH (12:12)
[2022-05-24] MEDS: ZESTORETIC 20-12.5 MG TAB PO SCH (12:12)
[2022-05-24] MEDS: PROZAC PO SCH (12:13)
[2022-05-24] MEDS: ASPIRIN EC PO SCH (12:13)
[2022-05-24] MEDS: MEVACOR PO SCH (17:06)
[2022-05-25] MEDS: DEXTROSE 5%-1/2NS IV SOLUTION 1,000 ML IV SCH (03:38)
[2022-05-25] MEDS: ZOFRAN 4 MG/2 ML IVP PRN ×2 (05:05→13:37)
[2022-05-25] MEDS: FLAGYL 500 MG/100 ML 500 MG/100 ML BAG IV SCH ×3 (05:31→20:49)
[2022-05-25] MEDS: PROTONIX PO SCH (05:31)
[2022-05-25 05:45] LABS: BASOPHILS % (AUTO) 0.3 % (0.0-3.0); EOSINOPHILS # (AUTO) 0.3 K/ul (0.0-0.7); EOSINOPHILS % (AUTO) 4.1 % (0.0-7.0); HEMATOCRIT 35.7 % (37.0-47.0); HEMOGLOBIN 11.5 g/dl (12.0-16.0); IMMATURE GRANULOCYTE % (AUTO) 0.3 % (0.0-5.0); LYMPHOCYTES # (AUTO) 2.1 K/uL (0.60-3.4); LYMPHOCYTES % (AUTO) 34.6 (10.0-50.0); MEAN CORPUSCULAR HGB CONC 32.2 (31.8-35.4); MEAN CORPUSCULAR VOLUME 90.2 fl (81.0-99.0); MONOCYTES # (AUTO) 0.5 K/uL (0.4-2.0); MONOCYTES % (AUTO) 7.3 (0-10); NEUTROPHILS # (AUTO) 3.3 K/ul (2.0-6.9); NEUTROPHILS % (AUTO) 53.4 % (42.2-75.2); PLATELET COUNT 236 10^3/uL (140-440); RDW COEFFICIENT OF VARIATION 13.7 % (11.6-14.8); RED BLOOD COUNT 3.96 10^6/ul (4.20-5.40); WHITE BLOOD COUNT 6.16 K/ul (4.6-10.2)
[2022-05-25 06:01] LABS: ALANINE AMINOTRANSFERASE 26.3 U/L (0-35); ALBUMIN 3.59 g/dL (3.5-5.0); ALKALINE PHOSPHATASE 65.7 U/L (53-141); ASPARTATE AMINO TRANSFERASE 38.3 U/L (14-36); BILIRUBIN,TOTAL 0.31 mg/dL (0.2-1.3); BLOOD UREA NITROGEN 8.2 mg/dL (7-17); CALCIUM 9.15 mg/dL (8.4-10.2); CHLORIDE 99.9 mmol/L (98-107); CREATININE 0.98 mg/dL (0.60-1.30); GLUCOSE 105.4 mg/dL (74-106); POTASSIUM 3.51 mmol/L (3.5-5.1); SODIUM 137.9 mmol/L (134.5-145); TOTAL PROTEIN 6.63 g/dL (6.3-8.2)
[2022-05-25] MEDS: CALCIUM 500 + VIT D 5 MCG (200 IU) TABLET PO SCH (08:54)
[2022-05-25] MEDS: ASPIRIN EC PO SCH (08:54)
[2022-05-25] MEDS: ZESTORETIC 20-12.5 MG TAB PO SCH (08:55)
[2022-05-25] MEDS: SINGULAIR PO SCH (08:55)
[2022-05-25] MEDS: CIPRO 400 MG/200 ML D5W 400 MG/200 ML BAG IV SCH ×2 (08:55→22:13)
[2022-05-25] MEDS: PROZAC PO SCH (08:55)
[2022-05-25] MEDS ORDERED: ULTRAM PO PRN (16:38)
[2022-05-25] MEDS: MEVACOR PO SCH (16:39)
[2022-05-25] MEDS: ZOFRAN TAB PO SCH (17:47)
[2022-05-26] MEDS: ZOFRAN TAB PO SCH ×4 (00:16→18:35)
[2022-05-26] MEDS: FLAGYL 500 MG/100 ML 500 MG/100 ML BAG IV SCH ×3 (04:08→14:56)
[2022-05-26 05:27] LABS: BASOPHILS % (AUTO) 0.3 % (0.0-3.0); EOSINOPHILS # (AUTO) 0.3 K/ul (0.0-0.7); EOSINOPHILS % (AUTO) 4.4 % (0.0-7.0); HEMATOCRIT 34.4 % (37.0-47.0); HEMOGLOBIN 11.2 g/dl (12.0-16.0); IMMATURE GRANULOCYTE % (AUTO) 0.3 % (0.0-5.0); LYMPHOCYTES % (AUTO) 31.8 (10.0-50.0); MEAN CORPUSCULAR HEMOGLOBIN 29.5 pg (27.0-31.0); MEAN CORPUSCULAR HGB CONC 32.6 (31.8-35.4); MEAN CORPUSCULAR VOLUME 90.5 fl (81.0-99.0); MONOCYTES # (AUTO) 0.5 K/uL (0.4-2.0); MONOCYTES % (AUTO) 7.6 (0-10); NEUTROPHILS # (AUTO) 3.6 K/ul (2.0-6.9); NEUTROPHILS % (AUTO) 55.6 % (42.2-75.2); PLATELET COUNT 222 10^3/uL (140-440); RDW COEFFICIENT OF VARIATION 13.6 % (11.6-14.8); WHITE BLOOD COUNT 6.41 K/ul (4.6-10.2)
[2022-05-26] MEDS: PROTONIX PO SCH (05:39)
[2022-05-26 05:44] LABS: ALANINE AMINOTRANSFERASE 22.6 U/L (0-35); ALBUMIN 3.66 g/dL (3.5-5.0); ASPARTATE AMINO TRANSFERASE 30.8 U/L (14-36); BILIRUBIN,TOTAL 0.37 mg/dL (0.2-1.3); BLOOD UREA NITROGEN 10.3 mg/dL (7-17); CALCIUM 8.95 mg/dL (8.4-10.2); CARBON DIOXIDE 29.9 mmol/L (22-30.0); CREATININE 0.9 mg/dL (0.60-1.30); GLUCOSE 107.4 mg/dL (74-106); POTASSIUM 3.36 mmol/L (3.5-5.1); SODIUM 137.8 mmol/L (134.5-145); TOTAL PROTEIN 6.86 g/dL (6.3-8.2)
[2022-05-26] MEDS: ASPIRIN EC PO SCH (09:31)
[2022-05-26] MEDS: PROZAC PO SCH (09:32)
[2022-05-26] MEDS: CALCIUM 500 + VIT D 5 MCG (200 IU) TABLET PO SCH (09:33)
[2022-05-26] MEDS: SINGULAIR PO SCH (09:34)
[2022-05-26] MEDS: ZESTORETIC 20-12.5 MG TAB PO SCH (09:34)
[2022-05-26] MEDS: CIPRO 400 MG/200 ML D5W 400 MG/200 ML BAG IV SCH (09:35)
[2022-05-26] MEDS: FLAGYL PO SCH ×2 (14:47→20:41)
[2022-05-26] MEDS: MEVACOR PO SCH (17:35)
[2022-05-26] MEDS: CIPRO PO SCH (20:41)
[2022-05-27] MEDS: ZOFRAN TAB PO SCH ×4 (00:35→18:24)
[2022-05-27 05:37] LABS: BASOPHILS % (AUTO) 0.3 % (0.0-3.0); EOSINOPHILS # (AUTO) 0.3 K/ul (0.0-0.7); EOSINOPHILS % (AUTO) 4.6 % (0.0-7.0); HEMATOCRIT 34.6 % (37.0-47.0); HEMOGLOBIN 11.2 g/dl (12.0-16.0); IMMATURE GRANULOCYTE % (AUTO) 0.3 % (0.0-5.0); LYMPHOCYTES # (AUTO) 2.3 K/uL (0.60-3.4); LYMPHOCYTES % (AUTO) 36.9 (10.0-50.0); MEAN CORPUSCULAR HEMOGLOBIN 29.2 pg (27.0-31.0); MEAN CORPUSCULAR HGB CONC 32.4 (31.8-35.4); MEAN CORPUSCULAR VOLUME 90.1 fl (81.0-99.0); MONOCYTES # (AUTO) 0.6 K/uL (0.4-2.0); NEUTROPHILS % (AUTO) 48.9 % (42.2-75.2); PLATELET COUNT 230 10^3/uL (140-440); RDW COEFFICIENT OF VARIATION 13.9 % (11.6-14.8); RED BLOOD COUNT 3.84 10^6/ul (4.20-5.40)
[2022-05-27] MEDS: FLAGYL PO SCH ×3 (05:44→20:16)
[2022-05-27] MEDS: PROTONIX PO SCH (05:44)
[2022-05-27] MEDS: CIPRO PO SCH ×2 (05:44→20:16)
[2022-05-27 05:49] LABS: ALANINE AMINOTRANSFERASE 20.9 U/L (0-35); ALBUMIN 3.53 g/dL (3.5-5.0); ASPARTATE AMINO TRANSFERASE 27.7 U/L (14-36); BILIRUBIN,TOTAL 0.33 mg/dL (0.2-1.3); BLOOD UREA NITROGEN 11.1 mg/dL (7-17); CALCIUM 9.12 mg/dL (8.4-10.2); CARBON DIOXIDE 33.9 mmol/L (22-30.0); CHLORIDE 98.2 mmol/L (98-107); CREATININE 0.94 mg/dL (0.60-1.30); GLUCOSE 90.1 mg/dL (74-106); POTASSIUM 3.48 mmol/L (3.5-5.1); TOTAL PROTEIN 6.6 g/dL (6.3-8.2)
[2022-05-27] MEDS: ZESTORETIC 20-12.5 MG TAB PO SCH (08:44)
[2022-05-27] MEDS: CALCIUM 500 + VIT D 5 MCG (200 IU) TABLET PO SCH (08:44)
[2022-05-27] MEDS: SINGULAIR PO SCH (08:44)
[2022-05-27] MEDS: ASPIRIN EC PO SCH (08:44)
[2022-05-27] MEDS: PROZAC PO SCH (08:44)
[2022-05-27] MEDS: MEVACOR PO SCH (17:25)
[2022-05-28] MEDS: ZOFRAN TAB PO SCH ×3 (00:10→11:40)
[2022-05-28] MEDS: FLAGYL PO SCH ×2 (05:54→12:30)
[2022-05-28] MEDS: CIPRO PO SCH (05:54)
[2022-05-28 06:06] VITALS: BP 136/78; TEMP 98.6
[2022-05-28] MEDS: ZESTORETIC 20-12.5 MG TAB PO SCH (08:11)
[2022-05-28] MEDS: ASPIRIN EC PO SCH (08:12)
[2022-05-28] MEDS: PROTONIX PO SCH (08:13)
[2022-05-28] MEDS: SINGULAIR PO SCH (08:13)
[2022-05-28] MEDS: PROZAC PO SCH (08:13)
[2022-05-28] MEDS: CALCIUM 500 + VIT D 5 MCG (200 IU) TABLET PO SCH (09:38)
--- NOTE | 2022-05-29 10:33 | ECHO2D ---
Date of Exam: 05/24/2022 Ordering Physician: DR. MOR FREEMAN Room #: OP Reason for Echo: SOB, HTN, COPD M-Mode Normal Adult Results LV Dimensions Normal Adult Results AoV Opening excursions >1.6 >1.6 LVEDD-base- 3.5-5.8 4.6 Ao root dimensions 2.0-3.7 3.2 LVESD-base- 3.1-4.6 L. Atrium dimensions 1.9-3.8 4.0 Post. Wall thickness 0.8-1.1 1.3 IV septum (thickness) 0.7-1.2 1.2 Post. Wall excursion 0.72-1.3 NORMAL Septal motion NORMAL Systolic motion R. Ventricular cavity 1.5-2.0 NORMAL LVEF 60% 66% Paradoxical septal wall motion NORMAL 2-D : 2-D M Mode Echocardiogram was performed using apical four chamber and left parasternal long and short axis views. Mitral, tricuspid and aortic valves appear to be normal. Contractility of the left ventricle seems to be normal, so is the cavity size. BORDERLINE LEFT ATRIAL CAVITY ENLARGEMENT. Aortic root appears to be normal. There is no pericardial effusion. There is no thrombus noted in the left ventricle or left atrial cavity. M-MODE: MV: NORMAL AV: NORMAL TV: NORMAL PV: CHAMBER SIZE: BORDERLINE LEFT ATRIAL CAVITY ENLARGEMENT WALL MOTION: NORMAL PERICARDIUM: NORMAL INTERPRETATION: 1. LEFT VENTRICLE HYPERTROPHY BORDERLINE WITH ENLARGEMENT OF LEFT ATRIAL CAVITY BORDERLINE 2. NORMAL VALVES 3. NORMAL LEFT VENTRICLE CONTRACTILITY 4. NORMAL LEFT VENTRICLE SIZE MTDD
--- NOTE | 2022-05-29 13:56 | PN ---
DATE OF SERVICE: 05/24/22 SUBJECTIVE: The patient was seen and examined with the Nurse Practitioner today. Condition has improved. She is hungry and wants almost regular diet. She is on clear liquids. Mild abdominal discomfort. No chest pain, No PND, No Orthopnea. She gets short of breath on minimal exertion. Likely that is that from obesity, inactivity and sedentary lifestyle but echo was done which showed normal LV contractility, LVH from the one before. REVIEW OF SYSTEMS: CONSTITUTIONAL: No night sweats. No fatigue, malaise, lethargy. No fever or chills. HEENT: Eyes: No visual changes. No eye pain. No eye discharge. ENT: No runny nose. No epistaxis. No sinus pain. No sore throat. No odynophagia. No congestion. RESPIRATORY: No cough, no congestion. No hemoptysis. No shortness of breath. CARDIOVASCULAR: No angina symptoms. No CHF symptoms. No atypical chest pain for CAD. No palpitations. No PND. No orthopnea. GASTROINTESTINAL: No abdominal pain. No nausea or vomiting. No diarrhea or constipation. No hematemesis. No hematochezia. GENITOURINARY: No urgency. No frequency. No dysuria. No hematuria. No obstructive symptoms. No discharge. No pain. No significant abnormal bleeding. MUSCULOSKELETAL: No musculoskeletal pain; no joint swelling. NEUROLOGICAL: No headache. No neck pain. No syncope. No seizures. No dizziness. PSYCHIATRIC: Not anxious. No depression. No suicidal thoughts. No homicidal thoughts. SKIN: No rash. No lesions. No wounds. ENDOCRINE: No unexplained weight loss. No weight gain. HEMATOLOGIC/LYMPHATIC: No anemia. No purpura. No petechiae. No prolonged or excessive bleeding. No palpable lymph nodes. PHYSICAL EXAMINATION: HEENT: Head normocephalic, atraumatic. Eyes: Extraocular muscles are intact. Pupils are equal, round and reactive to light and accommodation. Ears: No lesions. Nose appeared normal. Throat: No exudate or erythema. NECK: Supple. No JVD, no carotid bruit. No lymphadenopathy or thyromegaly. LUNGS: Decreased breath sounds. Clear to auscultation. Percussion note normal. Chest symmetrical. HEART: S1, S2, no S3. No murmurs. No cyanosis or clubbing. No ascites. Pulses: Dorsalis pedis and posterior tibial pulses +1 to +2 bilaterally. ABDOMEN: Soft. Nontender. Bowel sounds active. No CVA tenderness. No mass felt. EXTREMITIES: No edema. Full range of motion of all extremities, equal. NEUROLOGIC: No focal deficit. Cranial nerves II through XII are grossly intact. No headache. No double vision. SKIN: Not dry. Intact. Turgor - normal. LYMPHATIC: No palpable lymph nodes/no lymphedema. MUSCULOSKELETAL: Normal joints with no swelling. Muscle tone is normal. CONDITION: improving. ASSESSMENT: 1. Diverticulitis seems to be resolving PLAN: 1. Advised to continue all antibiotics 2. Put the patient on soft diet. TIME SPENT: More than 30 minutes. Plan and coordination of the patient's care discussed in the presence of nurse. FABIAN
--- NOTE | 2022-06-04 11:18 | PN ---
DATE OF SERVICE: 05/25/22 SUBJECTIVE: 71 year old white female hospitalized with acute diverticulitis. The patient's condition has been improving. She is eating now soft diet and had bowel movement this morning. REVIEW OF SYSTEMS: CONSTITUTIONAL: No night sweats. No fatigue, malaise, lethargy. No fever or chills. HEENT: Eyes: No visual changes. No eye pain. No eye discharge. ENT: No runny nose. No epistaxis. No sinus pain. No sore throat. No odynophagia. No congestion. RESPIRATORY: No cough, no congestion. No hemoptysis. No shortness of breath. CARDIOVASCULAR: No angina symptoms. No CHF symptoms. No atypical chest pain for CAD. No palpitations. No PND. No orthopnea. GASTROINTESTINAL: No abdominal pain. No nausea or vomiting. No diarrhea or constipation. No hematemesis. No hematochezia. GENITOURINARY: No urgency. No frequency. No dysuria. No hematuria. No obstructive symptoms. No discharge. No pain. No significant abnormal bleeding. MUSCULOSKELETAL: No musculoskeletal pain; no joint swelling. NEUROLOGICAL: No headache. No neck pain. No syncope. No seizures. No dizziness. PSYCHIATRIC: Not anxious. No depression. No suicidal thoughts. No homicidal thoughts. SKIN: No rash. No lesions. No wounds. ENDOCRINE: No unexplained weight loss. No weight gain. HEMATOLOGIC/LYMPHATIC: No anemia. No purpura. No petechiae. No prolonged or excessive bleeding. No palpable lymph nodes. PHYSICAL EXAMINATION: VITAL SIGNS: Temperature 97.8, pulse 80, respiratory rate 16, blood pressure 138/86 and pulse ox 97%. HEENT: Head normocephalic, atraumatic. Eyes: Extraocular muscles are intact. Pupils are equal, round and reactive to light and accommodation. Ears: No lesions. Nose appeared normal. Throat: No exudate or erythema. NECK: Supple. No JVD, no carotid bruit. No lymphadenopathy or thyromegaly. LUNGS: Decreased breath sounds but clear to auscultation. Percussion note normal. Chest symmetrical. HEART: S1, S2, no S3. No murmurs. No cyanosis or clubbing. No ascites. Pulses: Dorsalis pedis and posterior tibial pulses +1 to +2 bilaterally. ABDOMEN: Soft. Nontender. Bowel sounds active. No CVA tenderness. No mass felt. EXTREMITIES: No edema. Full range of motion of all extremities, equal. NEUROLOGIC: No focal deficit. Cranial nerves II through XII are grossly intact. No headache. No double vision. SKIN: Not dry. Intact. Turgor - normal. LYMPHATIC: No palpable lymph nodes/no lymphedema. MUSCULOSKELETAL: Normal joints with no swelling. Muscle tone is normal. LABS: Hgb 11.8, hct 35, WBC 6,100 normal differential, creatinine 0.9, BUN 8, potassium 3.5. ASSESSMENT: 1. Acute diverticulitis seems to be resolving 2. Chronic lung disease 3. Chronic bronchitis PLAN: 1. Continue to give Flagyl which makes her nauseated so we will be given it with Zofran 2. Continue Cipro. CONDITION: Stable, improving TIME SPENT: More than 30 minutes. Plan and coordination of the patient's care discussed in the presence of nurse. FABIAN
--- NOTE | 2022-06-05 09:19 | PN ---
DATE OF SERVICE: 05/26/22 SUBJECTIVE: 71 year old white female hospitalized with diverticulitis of colon. Condition has steadily improved. Her appetite has improved. Bowel movements are normal. REVIEW OF SYSTEMS: CONSTITUTIONAL: No night sweats. No fatigue, malaise, lethargy. No fever or chills. HEENT: Eyes: No visual changes. No eye pain. No eye discharge. ENT: No runny nose. No epistaxis. No sinus pain. No sore throat. No odynophagia. No congestion. RESPIRATORY: No cough, no congestion. No hemoptysis. No shortness of breath. CARDIOVASCULAR: No angina symptoms. No CHF symptoms. No atypical chest pain for CAD. No palpitations. No PND. No orthopnea. GASTROINTESTINAL: No abdominal pain. No nausea or vomiting. No diarrhea or constipation. No hematemesis. No hematochezia. GENITOURINARY: No urgency. No frequency. No dysuria. No hematuria. No obstructive symptoms. No discharge. No pain. No significant abnormal bleeding. MUSCULOSKELETAL: No musculoskeletal pain; no joint swelling. NEUROLOGICAL: No headache. No neck pain. No syncope. No seizures. No dizziness. PSYCHIATRIC: Not anxious. No depression. No suicidal thoughts. No homicidal thoughts. SKIN: No rash. No lesions. No wounds. ENDOCRINE: No unexplained weight loss. No weight gain. HEMATOLOGIC/LYMPHATIC: No anemia. No purpura. No petechiae. No prolonged or excessive bleeding. No palpable lymph nodes. PHYSICAL EXAMINATION: VITAL SIGNS: Temperature 97.7, pulse 69, respiratory rate 18, blood pressure 116/68 and pulse ox 96%. HEENT: Head normocephalic, atraumatic. Eyes: Extraocular muscles are intact. Pupils are equal, round and reactive to light and accommodation. Ears: No lesions. Nose appeared normal. Throat: No exudate or erythema. NECK: Supple. No JVD, no carotid bruit. No lymphadenopathy or thyromegaly. LUNGS: Decreased breath sounds but clear to auscultation. Percussion note normal. Chest symmetrical. HEART: S1, S2, no S3. No murmurs. No cyanosis or clubbing. No ascites. Pulses: Dorsalis pedis and posterior tibial pulses +1 to +2 bilaterally. ABDOMEN: Soft. Nontender. Bowel sounds active. No CVA tenderness. No mass felt. EXTREMITIES: No edema. Full range of motion of all extremities, equal. NEUROLOGIC: No focal deficit. Cranial nerves II through XII are grossly intact. No headache. No double vision. SKIN: Not dry. Intact. Turgor - normal. LYMPHATIC: No palpable lymph nodes/no lymphedema. MUSCULOSKELETAL: Normal joints with no swelling. Muscle tone is normal. LABS: Hgb 11.2, hct 34, WBC 6,400 normal differential, creatinine 0.9, BUN 10, potassium 3 ASSESSMENT: 1. Acute diverticulitis seems to have resolved clinically 2. Hypokalemia still persists PLAN: 1. Continue to give Potassium supplements TID 2. Diet for the diverticulitis discussed with the patient. CONDITION: Improving TIME SPENT: More than 30 minutes. Plan and coordination of the patient's care discussed in the presence of nurse. FABIAN
--- NOTE | 2022-06-05 11:37 | PN ---
DATE OF SERVICE: 05/27/22 SUBJECTIVE: 71 year old white female hospitalized with acute diverticulitis. The patient's condition seems to have improved. She is feeling better. Potassium is 3.4. She is eating better. Appetite is improving. REVIEW OF SYSTEMS: CONSTITUTIONAL: No night sweats. No fatigue, malaise, lethargy. No fever or chills. HEENT: Eyes: No visual changes. No eye pain. No eye discharge. ENT: No runny nose. No epistaxis. No sinus pain. No sore throat. No odynophagia. No congestion. RESPIRATORY: No cough, no congestion. No hemoptysis. No shortness of breath. CARDIOVASCULAR: No angina symptoms. No CHF symptoms. No atypical chest pain for CAD. No palpitations. No PND. No orthopnea. GASTROINTESTINAL: No abdominal pain. No nausea or vomiting. No diarrhea or constipation. No hematemesis. No hematochezia. GENITOURINARY: No urgency. No frequency. No dysuria. No hematuria. No obstructive symptoms. No discharge. No pain. No significant abnormal bleeding. MUSCULOSKELETAL: No musculoskeletal pain; no joint swelling. NEUROLOGICAL: No headache. No neck pain. No syncope. No seizures. No dizziness. PSYCHIATRIC: Not anxious. No depression. No suicidal thoughts. No homicidal thoughts. SKIN: No rash. No lesions. No wounds. ENDOCRINE: No unexplained weight loss. No weight gain. HEMATOLOGIC/LYMPHATIC: No anemia. No purpura. No petechiae. No prolonged or excessive bleeding. No palpable lymph nodes. PHYSICAL EXAMINATION: VITAL SIGNS: Temperature 97.8, pulse 64, respiratory rate 18, blood pressure 113/65 and pulse ox 95%. HEENT: Head normocephalic, atraumatic. Eyes: Extraocular muscles are intact. Pupils are equal, round and reactive to light and accommodation. Ears: No lesions. Nose appeared normal. Throat: No exudate or erythema. NECK: Supple. No JVD, no carotid bruit. No lymphadenopathy or thyromegaly. LUNGS: Decreased breath sounds but clear to auscultation. Percussion note normal. Chest symmetrical. HEART: S1, S2, no S3. No murmurs. No cyanosis or clubbing. No ascites. Pulses: Dorsalis pedis and posterior tibial pulses +1 to +2 bilaterally. ABDOMEN: Soft. Nontender. Bowel sounds active. No CVA tenderness. No mass felt. EXTREMITIES: No edema. Full range of motion of all extremities, equal. NEUROLOGIC: No focal deficit. Cranial nerves II through XII are grossly intact. No headache. No double vision. SKIN: Not dry. Intact. Turgor - normal. LYMPHATIC: No palpable lymph nodes/no lymphedema. MUSCULOSKELETAL: Normal joints with no swelling. Muscle tone is normal. LABS: hgb 11.2, hct 34, WBC 6,100 normal differential, creatinine 0.9, BUN 11, potassium 3.4 ASSESSMENT: 1. Acute diverticulitis seems to have resolved. Educate the patient about the diet. She strongly advised to avoid seeds, especially popcorn etc or vegetables. CONDITION: Improving. PLAN: 1. The patient's BMI is 35. The patient's weight loss diet discussed. TIME SPENT: More than 30 minutes. Plan and coordination of the patient's care discussed in the presence of nurse. FABIAN
--- NOTE | 2022-06-05 13:51 | PN ---
DATE OF SERVICE: 05/28/22 SUBJECTIVE: 71 year old white female hospitalized with acute diverticulitis. The patient's condition has improved. She is feeling better. She had nausea after taking Flagyl. She was given Zofran and she is feeling better at present time. She is ready to go home. REVIEW OF SYSTEMS: CONSTITUTIONAL: No night sweats. No fatigue, malaise, lethargy. No fever or chills. HEENT: Eyes: No visual changes. No eye pain. No eye discharge. ENT: No runny nose. No epistaxis. No sinus pain. No sore throat. No odynophagia. No congestion. RESPIRATORY: No cough, no congestion. No hemoptysis. No shortness of breath. CARDIOVASCULAR: No angina symptoms. No CHF symptoms. No atypical chest pain for CAD. No palpitations. No PND. No orthopnea. GASTROINTESTINAL: No abdominal pain. No nausea or vomiting. No diarrhea or constipation. No hematemesis. No hematochezia. GENITOURINARY: No urgency. No frequency. No dysuria. No hematuria. No obstructive symptoms. No discharge. No pain. No significant abnormal bleeding. MUSCULOSKELETAL: No musculoskeletal pain; no joint swelling. NEUROLOGICAL: No headache. No neck pain. No syncope. No seizures. No dizziness. PSYCHIATRIC: Not anxious. No depression. No suicidal thoughts. No homicidal thoughts. SKIN: No rash. No lesions. No wounds. ENDOCRINE: No unexplained weight loss. No weight gain. HEMATOLOGIC/LYMPHATIC: No anemia. No purpura. No petechiae. No prolonged or excessive bleeding. No palpable lymph nodes. PHYSICAL EXAMINATION: VITAL SIGNS: Temperature 98, pulse 100, respiratory 20, blood pressure 136/78, pulse of 96% on room air. HEENT: Head normocephalic, atraumatic. Eyes: Extraocular muscles are intact. Pupils are equal, round and reactive to light and accommodation. Ears: No lesions. Nose appeared normal. Throat: No exudate or erythema. NECK: Supple. No JVD, no carotid bruit. No lymphadenopathy or thyromegaly. LUNGS: Clear to auscultation. Percussion note normal. Chest symmetrical. HEART: S1, S2, no S3. No murmurs. No cyanosis or clubbing. No ascites. Pulses: Dorsalis pedis and posterior tibial pulses +1 to +2 bilaterally. ABDOMEN: Soft. Nontender. Bowel sounds active. No CVA tenderness. No mass felt. EXTREMITIES: No edema. Full range of motion of all extremities, equal. NEUROLOGIC: No focal deficit. Cranial nerves II through XII are grossly intact. No headache. No double vision. SKIN: Not dry. Intact. Turgor - normal. LYMPHATIC: No palpable lymph nodes/no lymphedema. MUSCULOSKELETAL: Normal joints with no swelling. Muscle tone is normal. LABS: hgb 11.2, hct 34, WBC 6,100 normal differential, creatinine 0.9, BUN 11, potassium 3.4. ASSESSMENT: 1. Acute diverticulitis resolved. Diet discussed PLAN: 1. Will discontinue Flagyl. She has already been on Flagyl for 5-6 days 2. Continue Cipro for three more days after discharge 3. Instruction to come back in 5-7 days 4. The patient is to be seen by Dr. Baez tomorrow. 5. We have made arrangement to have the patient's disc for her to take with her about her x-rays. TIME SPENT: More than 30 minutes. Plan and coordination of the patient's care discussed in the presence of nurse. FABIAN
--- NOTE | 2022-06-05 13:59 | DS ---
DATE OF SERVICE: 05/28/22 FINAL DIAGNOSIS: 1. Acute diverticulitis 2. Hypokalemia 3. Chronic lung disease 4. Depression 5. Hypertension 6. Reflux disease 7. Generalized osteoarthritis 8. Dyslipidemia DISCHARGE INSTRUCTIONS: Discharge the patient home. Advised to continue the rest of her medications as before. Instruction to come back in 5-7 days. The patient is to be seen by Dr. Baez tomorrow. The patient is already been given the disc and we will send report by tomorrow morning before 9:45am. MEDICATIONS AT DISCHARGE: Xanax Prozac Lovastatin Aspirin Dicyclomine Lisinopril Singular Pantoprazole Tramadol NEW PRESCRIPTIONS: Cipro 250mg twice a day for three days HOSPITAL COURSE: 71 year old white female hospitalized with diverticulitis. The patient was earlier seen in the emergency room 2-3 days prior to hospitalization and was sent home on Augmentin, condition didn't improve. She require hospitalization and IV fluids. Her condition improved with the PO Flagyl. She has some nausea which was treated with Zofran. On discharge the patient will be on Cipro twice a day for three days. Normal bowel movements and no abdominal pain. The diet was discussed with her in detail. Condition at the time of discharge is stable. TIME SPENT: More than 60 minutes. MTDD
--- NOTE | 2022-06-05 13:59 | PN ---
ADMISSION DAY: LEVEL 5 REST OF THEM: Intermediate FINAL DAY: D as in discharge MTDD
== END 2022-05-28 14:08 | disposition home or self-care (01) | DRG 392 ==
LOC: ED 07:13 → MEDSURG A 11:04
PROVIDERS: ADMIT Internal Medicine; ATTEND Internal Medicine
DX: E78.5 Hyperlipidemia, unspecified; I10 Essential (primary) hypertension; Z79.899 Other long term (current) drug therapy; K21.9 Gastro-esophageal reflux disease without esophagitis; F32.A Depression, unspecified; K57.92 Diverticulitis of intestine, part unspecified, without perforation or abscess without bleeding; Z20.822 Contact with and (suspected) exposure to COVID-19; M15.9 Polyosteoarthritis, unspecified; R91.1 Solitary pulmonary nodule; Z51.81 Encounter for therapeutic drug level monitoring; J44.9 Chronic obstructive pulmonary disease, unspecified; E87.6 Hypokalemia